=== PATIENT | male | born 1935 | race Caucasian/White ===

== ENCOUNTER 2017-06-17 00:51 | Emergency (ER) | payer MEDICARE, OTHER ==
[~2017-06-17] VITALS: Ht 180.3 cm; Wt 79.5 kg
[2017-06-17] MEDS ORDERED: ATOR10TA15 PO (01:02)
[2017-06-17] MEDS ORDERED: ATEN25TA PO (01:02)
[2017-06-17] MEDS ORDERED: CLOP75TA PO (01:02)
[2017-06-17 01:03] VITALS: BP 166/82; PULSE 52; RESP 18; TEMP 98.1; O2SAT 100
[2017-06-17] MEDS ORDERED: SODIUM CHLOR 0.9% 1000 ML INJ 1,000 ML IV ONE (01:29)
--- NOTE | 2017-06-17 01:29 | PD ---
HPI Chief Complaint: Abdominal Pain Time Seen by Provider: 01:24 Travel History International Travel<30 days: No Contact w/Intl Traveler<30days: No Traveled to known affect area: No History of Present Illness HPI The patient is an 82-year-old male that complains of sudden onset of right flank pain going to the right UVJ at approximately 8 PM tonight. He states he has a kidney stone and this feels similar to his previous stone many years ago except that is not sharp. It is more dull. He denies any nausea or vomiting or fever. The patient takes Plavix because he had a CABG-according to the patient. His abdominal surgery includes appendectomy and surgery for colon cancer. PFSH Social History Tobacco Use: No Allergies-Medications (Allergen,Severity, Reaction): Coded Allergies: No Known Allergies (Unverified , 06/17/17) Reported Meds & Prescriptions Reported Meds & Active Scripts Active Ibuprofen 600 Mg Tab 600 Mg PO TID Zofran (Ondansetron HCl) 4 Mg Tab 4 Mg PO Q6HR PRN Flomax (Tamsulosin HCl) 0.4 Mg Cap 0.4 Mg PO HS Percocet (Oxycodone-Acetaminophen) 5-325 mg Tab 1-2 Tab PO Q6H PRN Reported Atorvastatin (Atorvastatin Calcium) 10 Mg Tab 10 Mg PO HS Clopidogrel (Clopidogrel Bisulfate) 75 Mg Tab 75 Mg PO DAILY Atenolol 25 Mg Tab 12.5 Mg PO DAILY Review of Systems Except as stated in HPI: all other systems reviewed are Neg Physical Exam Narrative GENERAL: The patient is alert, oriented 3 in moderate apparent distress with his right abdominal pain. SKIN: Focused skin assessment warm/dry. HEAD: Atraumatic. Normocephalic. EYES: Pupils equal and round. No scleral icterus. No injection or drainage. ENT: No nasal bleeding or discharge. Mucous membranes pink and moist. NECK: Trachea midline. No JVD. CARDIOVASCULAR: Regular rate and rhythm. No murmur appreciated. RESPIRATORY: No accessory muscle use. Clear to auscultation. Breath sounds equal bilaterally. GASTROINTESTINAL: Abdomen soft, with minimal tenderness at the right UVJ and right flank to direct palpation, nondistended. Hepatic and splenic margins not palpable. No guarding or rebound is present. MUSCULOSKELETAL: No obvious deformities. No clubbing. No cyanosis. No edema. NEUROLOGICAL: Awake and alert. No obvious cranial nerve deficits. Motor grossly within normal limits. Normal speech. PSYCHIATRIC: Appropriate mood and affect; insight and judgment normal. Data Data Last Documented VS Vital Signs Date Time Temp Pulse Resp B/P (MAP) Pulse Ox O2 Delivery O2 Flow Rate FiO2 06/17/17 01:03 98.1 52 18 166/82 (110) 100 Orders Orders Urinalysis - C+S If Indicated (06/17/17 01:12) Complete Blood Count With Diff (06/17/17 01:29) Basic Metabolic Panel (Bmp) (06/17/17 01:29) Ct Abd/Pel W/O Iv Contrast (06/17/17 01:29) Ecg Monitoring (06/17/17 01:29) Iv Access Insert/Monitor (06/17/17 01:29) Ketorolac Inj (Toradol Inj) (06/17/17 01:30) Morphine Inj (Morphine Inj) (06/17/17 01:30) Sodium Chloride 0.9% Flush (Ns Flush) (06/17/17 01:30) Sodium Chlor 0.9% 1000 Ml Inj (Ns 1000 M (06/17/17 01:29) Tamsulosin (Flomax) (06/17/17 02:30) Labs Laboratory Tests Test 06/17/17 01:22 06/17/17 01:49 Urine Color BILLY Urine Turbidity SLIGHT Urine pH 6.0 Urine Specific [place] 1.020 Urine Protein 100 mg/dL Urine Glucose (UA) NEG mg/dL Urine Ketones TRACE mg/dL Urine Occult Blood LARGE Urine Nitrite NEG Urine Bilirubin NEG Urine Leukocyte Esterase TRACE Urine RBC 100-200 /hpf Urine WBC 3-5 /hpf Urine Squamous Epithelial Cells 0-5 /hpf Urine Bacteria NONE /hpf Microscopic Urinalysis Comment CULT NOT INDICATED White Blood Count 21.4 TH/MM3 Red Blood Count 4.91 MIL/MM3 Hemoglobin 14.0 GM/DL Hematocrit 42.3 % Mean Corpuscular Volume 86.1 FL Mean Corpuscular Hemoglobin 28.5 PG Mean Corpuscular Hemoglobin Concent 33.1 % Red Cell Distribution Width 13.8 % Platelet Count 235 TH/MM3 Mean Platelet Volume 9.4 FL Neutrophils (%) (Auto) 65.9 % Lymphocytes (%) (Auto) 29.6 % Monocytes (%) (Auto) 2.8 % Eosinophils (%) (Auto) 0.1 % Basophils (%) (Auto) 1.6 % Neutrophils # (Auto) 14.2 TH/MM3 Lymphocytes # (Auto) 6.3 TH/MM3 Monocytes # (Auto) 0.6 TH/MM3 Eosinophils # (Auto) 0.0 TH/MM3 Basophils # (Auto) 0.3 TH/MM3 CBC Comment AUTO DIFF Differential Total Cells Counted 100 Neutrophils % (Manual) 67 % Band Neutrophils % 2 % Lymphocytes % 28 % Monocytes % 3 % Neutrophils # (Manual) 14.8 TH/MM3 Differential Comment FINAL DIFF MANUAL Platelet Estimate NORMAL Platelet Morphology Comment NORMAL Red Cell Morphology Comment NORMAL Blood Urea Nitrogen 19 MG/DL Creatinine 1.30 MG/DL Random Glucose 123 MG/DL Calcium Level 8.8 MG/DL Sodium Level 136 MEQ/L Potassium Level 5.5 MEQ/L Chloride Level 101 MEQ/L Carbon Dioxide Level 29.7 MEQ/L Anion Gap 5 MEQ/L Estimat Glomerular Filtration Rate 53 ML/MIN [facility] Medical Decision Making Medical Screen Exam Complete: Yes Emergency Medical Condition: Yes Medical Record Reviewed: Yes Interpretation(s) The CT abdomen/pelvis without IV contrast shows right sided obstructive uropathy secondary to a 5 mm calculus in the proximal right ureter with mild-to- moderate right hydronephrosis. The CBC is 21,400 but the neutrophil percentage is not increased. The potassium is 5.5 with BUN of 19 and glucose 123 and GFR 53 but the rest of the basic metabolic profile is normal. The urine shows billy color, specific gravity 1.020, 100 protein, trace ketones, large occult blood, trace leukocyte Estrace with 100 200 red cells but is otherwise normal and culture is not indicated. Differential Diagnosis Right urinary stone, urinary tract infection, intestinal colic, colitis, renal insufficiency, electrolyte disorder Narrative Course The patient has a 5 mm right urinary stone. He needs to call urology later on this morning to set up an appointment. He is given Motrin, Percocet, Flomax and Zofran. Diagnosis Primary Impression: Right ureteral calculus Additional Instructions: Call today to set up an appointment with urology. This is a big stone and the urologist may have to go up and get it. You do stand some chance of passing the stone but not without considerable discomfort. Med/Other Pt SpecificInfo: Prescription(s) given Scripts Ibuprofen (Ibuprofen) 600 Mg Tab 600 MG PO TID, #33 TAB 0 Refills Prov: Imer Brennan MD 06/17/17 Ondansetron (Zofran) 4 Mg Tab 4 MG PO Q6HR Y for NAUSEA OR VOMITING, #30 TAB 0 Refills Prov: Imer Brennan MD 06/17/17 Tamsulosin (Flomax) 0.4 Mg Cap 0.4 MG PO HS for Manage Prostate Problems, #30 CAP 0 Refills Prov: Imer Brennan MD 06/17/17 Oxycodone-Acetaminophen (Percocet) 5-325 mg Tab 1-2 TAB PO Q6H Y for PAIN, #30 TAB 0 Refills Prov: Imer Brennan MD 06/17/17 Disposition: 01 DISCHARGE HOME Condition: Stable Imer Brennan MD Jun 17, 2017 01:29
[2017-06-17] MEDS ORDERED: MORPHINE SULFATE 4 MG/ML INJ IV PUSH ONE (01:30)
[2017-06-17] MEDS ORDERED: SODIUM CHLORIDE 0.9% FLUSH 10 ML FLUSH IVF PRN (01:30)
[2017-06-17] MEDS ORDERED: KETOROLAC TROMETHAMINE 30 MG/ML (IVP) VIAL IV PUSH ONE (01:30)
[2017-06-17 01:37] LABS: BLOOD, URINE LARGE (NEG); GLUCOSE,URINE NEG (NEG); KETONE, URINE TRACE mg/dL (NEG); NITRITE,URINE NEG (NEG)
[2017-06-17 01:42] LABS: COMMENT (UR) CULT NOT INDICATED; CULTURE IF INDICATED CULT NOT INDICATED; RBC, URINE 100-200 /hpf (0-3); SQUAMOUS EPITHELIAL CELL URINE 0-5 /hpf (0-5); URINE COLOR AMBER (YELLW/STRAW)
[2017-06-17 01:56] LABS: AUTOMATED NEUTROPHIL # 14.2 TH/MM3 (1.8-7.7); BASOPHIL # 0.3 TH/MM3 (0-0.2); BASOPHIL % 1.6 % (0.0-2.0); EOSINOPHIL % 0.1 % (0.0-4.0); HEMATOCRIT 42.3 % (39.0-51.0); LYMPH % 29.6 % (9.0-44.0); LYMPHOCYTE # 6.3 TH/MM3 (1.0-4.8); MEAN CELL VOLUME 86.1 FL (80.0-100.0); MEAN CORPUSCULAR HEMOGLOBIN 28.5 PG (27.0-34.0); MEAN CORPUSCULAR HGB CONC 33.1 % (32.0-36.0); MONO % 2.8 % (0.0-8.0); NEUT % 65.9 % (16.0-70.0); PLATELET COUNT 235 TH/MM3 (150-450); RED BLOOD COUNT 4.91 MIL/MM3 (4.50-5.90); RED CELL DISTRIBUTION WIDTH 13.8 % (11.6-17.2); WHITE BLOOD COUNT 21.4 TH/MM3 (4.0-11.0)
[2017-06-17 01:57] LABS: HEMO FLAGS AUTO DIFF
--- NOTE | 2017-06-17 02:06 | RADRPT ---
EXAM DATE/TIME: 06/17/2017 01:37 [place] COMPARISON: No previous studies available for comparison. INDICATIONS : Abdominal pain, radiates to back. ORAL CONTRAST: No oral contrast ingested. RADIATION DOSE: 21.55 CTDIvol (mGy) MEDICAL HISTORY : Hypertension. Carcinoma, colon. SURGICAL HISTORY : Appendectomy. Colectomy. Hip replacement ENCOUNTER: Initial ACUITY: 1 day PAIN SCALE: 8/10 LOCATION: Bilateral abdomen TECHNIQUE: Volumetric scanning of the abdomen and pelvis was performed. Using automated exposure control and ad justment of the mA and/or kV according to patient size, radiation dose was kept as low as reasonably achievable to obtain optimal diagnostic quality images. DICOM format image data is available electro nically for review and comparison. FINDINGS: There is a 5 mm calculus in the proximal right ureter with right-sided hydronephrosis and obstructive uropathy. Additional nonobstructing 2.5 mm calculus present lower pole right kidney. Numerous left renal calculi also noted measuring up to 7 mm in the upper pole left kidney. No acute findings in the liver, spleen, adrenals or pancreas. Several calcified gallstones. No biliar y ductal dilatation. No pelvic masses or free fluid. No adenopathy. Previous left hip replacement. CONCLUSION: 1. Right-sided obstructive uropathy secondary to a 5 mm calculus in the proximal right ureter mild to moderate right hydronephrosis. Bryce Lea MD on June 17, 2017 at 1:58 Board Certified Radiologist. This report was verified electronically.
[2017-06-17 02:07] LABS: BICARBONATE 29.7 MEQ/L (21.0-32.0)
[2017-06-17 02:08] LABS: POTASSIUM 5.5 MEQ/L (3.5-5.1)
[2017-06-17 02:10] LABS: BANDS 2 % (0-6); NEUTROPHIL # MANUAL DIFF 14.8 TH/MM3 (1.8-7.7); PLATELET ESTIMATE SMEAR NORMAL (NORMAL); PLATELET MORPHOLOGY NORMAL (NORMAL); POLYS (SEG NEUTROPHILS) 67 % (16-70); SCAN/DIFF FINAL DIFF MANUAL; WBC DIFF SAMPLE 100
[2017-06-17] MEDS ORDERED: ZOFR4TAB PO (02:29)
[2017-06-17] MEDS ORDERED: TAMS5CAP PO (02:29)
[2017-06-17] MEDS ORDERED: PERC5TAB12 PO (02:29)
[2017-06-17] MEDS ORDERED: IBUP-232 PO (02:29)
[2017-06-17] MEDS ORDERED: TAMSULOSIN HCL 0.4 MG CAP PO ONE (02:30)
[2017-06-17 02:36] VITALS: RESP 18
[2017-06-17 02:49] VITALS: BP 160/70
== END 2017-06-17 02:50 | disposition home or self-care (01) ==
LOC: PHED 00:51
DX: N13.2 Hydronephrosis with renal and ureteral calculous obstruction (principal)
CPT/HCPCS: 74176; 80048; 81001; 85007; 85027; 96361; 96374; 96375; 99285; J1885; J2270; J7030